=== PATIENT | female | born 1960 | race Caucasian/White ===

== ENCOUNTER 2018-10-21 09:52 | Outpatient (CLI) | payer MEDICARE, MEDICAID, SELFPAY ==
--- NOTE | 2018-10-21 08:47 | DI.RAD_ITS ---
SYMPTOM/DIAGNOSIS: LT THUMB PAIN, M79.645 LEFT WRIST: Three views are provided. The bony structures are normally mineralized. There are mild degenerative changes involving the first metacarpal multangular joint. The study is otherwise unremarkable.
== END 2018-10-21 10:12 ==
PROVIDERS: PCP Nurse Practitioner Family; Visit Provider Nurse Practitioner Family
DX: M79.645 Pain in left finger(s) (principal); M18.12 Unilateral primary osteoarthritis of first carpometacarpal joint, left hand
CPT/HCPCS: 73110

== ENCOUNTER → 2018-11-24 09:09 | Outpatient (BNVA) | payer MEDICARE, MEDICAID, SELFPAY | PROVIDERS: PCP Nurse Practitioner Family; Referring Provider Nurse Practitioner Family; Visit Provider Orthopaedic Surgery | DX: M79.645 Pain in left finger(s) (principal); M18.12 Unilateral primary osteoarthritis of first carpometacarpal joint, left hand; M77.9 Enthesopathy, unspecified | CPT/HCPCS: 20600; 99214; J1030 ==

== ENCOUNTER → 2018-12-22 08:46 | Outpatient (BNVA) | payer MEDICARE, MEDICAID, SELFPAY | PROVIDERS: PCP Nurse Practitioner Family; Referring Provider Nurse Practitioner Family; Visit Provider Orthopaedic Surgery | DX: M79.645 Pain in left finger(s) (principal); M18.12 Unilateral primary osteoarthritis of first carpometacarpal joint, left hand; Z98.890 Other specified postprocedural states | CPT/HCPCS: 99213 ==

== ENCOUNTER 2018-12-23 09:27 | Outpatient (REF) | payer MEDICARE, MEDICAID, SELFPAY ==
[2018-12-23 14:05] LABS: TSH (W/Ref FT4) 4.29 uIU/mL (0.358-3.74)
[2018-12-23 14:22] LABS: FREE T4 1.04 ng/dL (0.76-1.46)
== END 2018-12-23 09:47 ==
LOC: NCHCN 09:27
PROVIDERS: PCP Nurse Practitioner Family; Visit Provider Nurse Practitioner Family
DX: E03.9 Hypothyroidism, unspecified (principal)
CPT/HCPCS: 84439; 84443

== ENCOUNTER → 2019-04-13 10:52 | Outpatient (BNVA) | payer MEDICARE, MEDICAID, SELFPAY | PROVIDERS: PCP Nurse Practitioner Family; Referring Provider Nurse Practitioner Family; Visit Provider Orthopaedic Surgery | DX: M18.12 Unilateral primary osteoarthritis of first carpometacarpal joint, left hand (principal) | CPT/HCPCS: 20600; 99213; J1030 ==

== ENCOUNTER 2019-06-14 12:48 | Outpatient (REF) | payer MEDICARE, MEDICAID, SELFPAY ==
[2019-06-14 13:34] LABS: ALT 32 U/L (14-59); AST 20 U/L (15-37); Albumin 3.8 g/dL (3.4-5.0); Alkaline Phosphatase 85 U/L (46-116); Anion Gap 9.8 mmol/L (3-11); BUN 17 mg/dL (7-18); Bilirubin, Total 0.6 mg/dL (0.2-1.0); CO2 27.2 mmol/L (21.0-32.0); CREATININE 1.02 mg/dL (0.55-1.02); Calculated LDL 110 mg/dL; Chloride 106 mmol/L (98-107); Cholesterol 208 mg/dL (<200); Estimated GFR 55.47 (mL/min/1.73m2); Glucose 119 mg/dL (74-106); HDL Cholesterol 61 mg/dL (40-60); Potassium 4.4 mmol/L (3.5-5.1); Sodium 143 mmol/L (136-145); TSH 3.94 uIU/mL (0.36-3.74); Total Protein 6.7 g/dL (6.4-8.2); Triglyceride 187 mg/dL (<150)
== END 2019-06-14 13:08 ==
LOC: NCHCN 12:48
PROVIDERS: PCP Nurse Practitioner Family; Visit Provider Nurse Practitioner Family
DX: E03.9 Hypothyroidism, unspecified (principal); I10 Essential (primary) hypertension; E78.5 Hyperlipidemia, unspecified
CPT/HCPCS: 80053; 80061; 84443

== ENCOUNTER → 2019-07-05 08:38 | Outpatient (BNVA) | payer MEDICARE, MEDICAID, SELFPAY | PROVIDERS: PCP Nurse Practitioner Family; Referring Provider Nurse Practitioner Family; Visit Provider Orthopaedic Surgery | DX: M18.12 Unilateral primary osteoarthritis of first carpometacarpal joint, left hand (principal); Z98.890 Other specified postprocedural states | CPT/HCPCS: 99213 ==

== ENCOUNTER 2019-07-27 09:35 | Outpatient (CLI) | payer MEDICARE, MEDICAID, SELFPAY ==
--- NOTE | 2019-07-27 11:22 | HPE_ITS ---
Assessment and Plan Assessment and plan (1) Osteoarthritis of carpometacarpal (CMC) joint of left thumb: Status: Chronic Assessment and plan: Plan: Educated patient on surgery covering surgical technique, recovery process, benefits and risks including but not limited to risk of infection, blood clot, damage to soft tissue/blood vessels/nerves in detail. After discussion patient gives verbal understanding of risks and elects to proceed with scheduling surgery. Patient had opportunity to have questions answered to their satisfaction. They will contact office if issues arise. Patient will continue to be scheduled for left trapezial resection arthroplasty with Dr. Calderon. Qualifiers: Osteoarthritis type: primary Qualified Code(s): M18.12 - Unilateral primary osteoarthritis of first carpometacarpal joint, left hand History of Present Illness Narrative: Ms. Scott is right hand dominant 59-year-old female who presents to clinic for pre-operative exam for scheduled left trapezial resection arthroplasty with Dr. Calderon. She has been seen in orthopedic clinic numerous times for left thumb pain due to known CMC OA that has been ongoing for several years. Patient has received CMC joint injection on 11/24/18 and then again on 04/13/19. Reports her first injection helped significantly to reduce her pain, unfortunately she only experienced partial relief for approximately 2 weeks with the second injection. Previously she has tried to treat discomfort by wearing an OTC brace but was unable to tolerate it due to the metal bar putting pressure at the brace of her thumb. Since that time she has continued to have pain along her left thumb. Describes pain with all motions of her thumb. She has tried to treat pain by taking ibuprofen 400 mg QID PRN which dulls the pain. Denies numbness, tingling, injuries or falls. Due to her continued discomfort she was offered and elected to proceed with surgical intervention. Pertinent Surgical Information Denies past medical history of: stroke, cardiac issues, angina, asthma, COPD, sleep apnea, renal issues, liver issues, hepatitis, gastrointestinal issues, ulcers, bleeding disorders, seizures, diabetes, autoimmune disorders Denies prior complications from surgery or anesthesia. Review of Systems Constitutional Constitutional: Denies fever(s), Denies frequent falls and Reports headache(s) (migraines; no change) Eyes Eyes: Denies change in vision ENT Ears, Nose, Mouth, and Throat: Denies dizziness, Denies ear discharge, Reports headache(s) (migraines; no change), Denies epistaxis, Denies nasal discharge and Denies sore throat Cardiovascular Cardiovascular: Denies chest pain, Denies rapid heart rate, Denies irregular heart rhythm, Denies dyspnea, Denies dyspnea on exertion, Denies orthopnea, Denies paroxysmal nocturnal dyspnea and Denies slow heart rate Respiratory Respiratory: Denies cough, Denies dyspnea, Denies dyspnea on exertion and Denies wheezing Gastrointestinal Gastrointestinal: Denies abdominal pain, Denies melena, Denies hematochezia, Denies constipation, Denies diarrhea, Denies nausea and Denies vomiting Genitourinary Genitourinary: Denies hematuria, Denies dysuria and Denies urinary urgency Musculoskeletal Musculoskeletal: Reports as per HPI, Denies numbness and Denies tingling Neurologic Neurologic: Denies dizziness, Denies frequent falls, Reports headache(s) (migraines; no change), Denies numbness and Denies tingling Psychiatric Psychiatric: Reports anxiety (no changes), Reports depression (no changes), Denies homicidal ideation and Denies suicidal ideation Allergic/Immunologic Allergic/Immunologic: Denies wheezing [facility] Medical History (Updated 07/27/19 @ 11:31 by Darling Medina) Depression (Chronic) GERD (gastroesophageal reflux disease) (Chronic) HTN (hypertension) (Chronic) Hyperlipidemia (Acute) Hypothyroidism (Chronic) Surgical History (Updated 07/27/19 @ 09:58 by Quintin Garcia) H/O colonoscopy (Chronic) History of esophagogastroduodenoscopy (EGD) (Chronic) Hx of cholecystectomy (Chronic) Status post excision of lipoma (Acute) Family History (Updated 07/27/19 @ 09:58 by Quintin Garcia) Mother Hx of malignant neoplasm Sister Thyroid cancer Social History Smoking/Tobacco Use Status: Former Tobacco Use Quit Date: 06/29/00 Alcohol Intake: current Alcohol Intake frequency: a few times a week Alcohol type: hard liquor Drug use: Never Substance use type: does not use Current gender identity: female Do you feel safe at home: Yes Do you feel safe in your relationship?: Yes Meds Home Medications and Allergies Home Medications Medication Instructions Recorded Confirmed Type atorvastatin 20 mg tablet 20 mg PO DAILY 04/13/19 07/27/19 History bupropion HCl 150 mg 24 hr tablet, 150 mg PO QAM 04/13/19 07/27/19 History extended release levothyroxine 112 mcg capsule 112 mcg PO DAILY 04/13/19 07/27/19 History pantoprazole 40 mg tablet,delayed 40 mg PO DAILY 04/13/19 07/27/19 History release ibuprofen 400 mg PO PRN PRN 07/27/19 07/27/19 History multivitamin 1 cap PO DAILY 07/27/19 07/27/19 History propranolol 20 mg PO DAILY 07/27/19 07/27/19 History sumatriptan succinate 25 mg PO PRN PRN 07/27/19 07/27/19 History Allergies Allergy/AdvReac Type Severity Reaction Status Date / Time No Known Allergies Allergy Verified 07/27/19 11:37 Exam Const General: cooperative and no acute distress [facility] Head: normal to inspection, normocephalic and atraumatic Ears: external ears normal General nose exam: external nose normal and no nasal discharge Face and sinus: face symmetric Mouth: oral mucosae normal, lip normal, tongue normal and moist mucous membranes Teeth and gingiva: dentition normal Throat: posterior oropharynx normal Eyes General: appearance normal, both eyes and all related structures Pupils: PERRL EOM: EOM intact bilaterally Neck Neck: trachea midline Carotids: normal carotid upstroke Lymphatic: no lymphadenopathy noted Resp Effort & Inspection: normal respiratory effort and able to speak in complete sentences Auscultation: clear to auscultation bilaterally, no rales, no rhonchi and no wheezes Cardio Heart Sounds: S1 normal, S2 normal and no murmurs Pulses: radial pulses present bilaterally Skin General skin exam: no rashes or lesions noted
== END 2019-07-27 09:55 ==
PROVIDERS: PCP Nurse Practitioner Family; Visit Provider Orthopaedic Surgery
DX: M18.12 Unilateral primary osteoarthritis of first carpometacarpal joint, left hand (principal); Z01.818 Encounter for other preprocedural examination
CPT/HCPCS: NC

== ENCOUNTER 2019-08-01 08:51 | Day surgery (SDC) | payer MEDICARE, MEDICAID, SELFPAY ==
[2019-08-01 09:14] VITALS: BP 138/59; PULSE 56; RESP 17; TEMP 36.4; O2SAT 95
[2019-08-01] MEDS: Lactated Ringers 1,000 ML 80 ML IV (09:41)
[2019-08-01] MEDS: ceFAZolin 1 GM/50 ML BAG IVPB (11:07)
[2019-08-01] MEDS: Bupivacaine 0.5% Pres-Free 30 ML VIAL (11:52)
[2019-08-01] MEDS: EPINEPHrine 1 MG/ML AMP pres-free (11:52)
--- NOTE | 2019-08-01 12:31 | W.PM.DSUDISC ---
Discharge Plan Disposition Patient Disposition: HOME Condition: Good Discharge Details Reason For Visit: L Trapezial Resectional Arthroplasty Attending Provider: Jam Calderon Primary Care Provider: Sheila Garibay Home Meds and New Rx's Prescriptions: New hydrocodone-acetaminophen 5-325 mg tablet 1 tab PO Q6H PRN (Reason: pain) Qty: 10 RF: 0 Continued bupropion HCl 150 mg tablet extended release 24 hr 150 mg PO QAM RF: 0 atorvastatin 20 mg tablet 20 mg PO DAILY RF: 0 pantoprazole 40 mg tablet,delayed release (DR/EC) 40 mg PO DAILY RF: 0 levothyroxine 112 mcg capsule 112 mcg PO DAILY RF: 0 sumatriptan succinate 25 mg Tablet 25 mg PO PRN PRNRF: 0 ibuprofen 400 mg Tablet 400 mg PO PRN PRNRF: 0 propranolol 20 mg Tablet 20 mg PO DAILY RF: 0 multivitamin Capsule 1 cap PO DAILY RF: 0 Discharge Instructions Additional Instructions: Try to elevate L hand above heart level as much as possible for next 48 hours. Wiggle fingers L hand 10 times/hour when awake to prevent swelling. Keep dressings and splint dry and in place until return.(Cover with plastic bag sealed with large rubber band below elbow to shower) Return to 's office in 2 weeks. Take ibuprofen for mild pain. Take hydrocodone for breakthru pain, if needed. Referrals: Jam Calderon MD [ [facility] STAFF PHYSICIAN] - (f/u in 2 weeks.) Equipment/Supplies: Splint Activity:: Activity as Tolerated Remove Dressings/Wound Care:: Do Not Remove Shower/Bathe:: Cover Diet:: As Tolerated Discharge Orders Discharge Orders: Discharge Order (Routine); Ordered 08/01/19 Ordered By: Jam Calderon DS: Diagnosis Discharge Diagnosis (1) Osteoarthritis of carpometacarpal (CMC) joint of left thumb: Status: Chronic
[2019-08-01] MEDS: Normal Saline Flush 10 ML SYR IV (13:00)
[2019-08-01] MEDS: Ketorolac 30 MG/ML VIAL IVP (13:01)
[2019-08-01 13:07] VITALS: BP 157/99; PULSE 54; RESP 16; TEMP 36.4; O2SAT 95
--- NOTE | 2019-08-02 16:49 | ROE_ITS ---
DATE OF PROCEDURE: August 01, 2019 PREOPERATIVE DIAGNOSIS: Osteoarthritis CMC joint, left thumb. POSTOPERATIVE DIAGNOSIS: Same. PROCEDURE: 1. Trapezial resectional arthroplasty, left. 2. Application of short-arm thumb spica splint. ANESTHESIA: IV regional. SURGEON: Jam Calderon M.D. INDICATIONS: This is a 59-year-old white female with CMC joint arthritis of her left thumb. The rose n from the arthritis has increased to the point where she could not use her left hand for routine act ivities. She has had only limited benefit from splinting and anti-inflammatory medications. Resecti onal arthroplasty of the trapezium was recommended as optimum treatment to alleviate her pain and res tore good function to her left thumb and hand. The risks and complications of the procedure were exp lained to the patient in detail preoperatively. PROCEDURE: The patient was taken to the operating room on 08/01/2019. She was placed supine on the op erating table and an IV regional anesthesia was administered to the left upper extremity. Once good anesthesia was obtained, the left hand, wrist and forearm were prepped and draped free in the usual s terile fashion. An incision was made on the dorsum of the left thumb, centered over the CMC joint and situated just u lnar to the short extensors of the thumb. The incision was carried down to the joint capsule. The c apsule was incised. A periosteal dissection was then used to expose the trapezium. The trapezium wa s then resected, first with an oscillating saw that was placed parallel to the articulation with the scaphoid, leaving about a 1 mm thick shell of trapezium to articulate with the scaphoid. The distal portion of the trapezium was then sectioned with vertical cuts with the oscillating saw. I then sepa rated the sections with an osteotome and a mallet. The trapezium was then removed in a piecemeal fas hion with rongeurs. The wound was irrigated with saline solution. The wound margins were infiltrate d with 0.5% Marcaine with an epinephrine solution. The CMC joint capsule was then approximated with interrupted #2-0 Vicryl sutures. The short extensor tendons of the thumb were tenodesed to the capsu le with interrupted #2-0 Vicryl sutures. The skin and subcu were then approximated with interrupted #4-0 nylon sutures. Subcutaneous veins were cauterized and a dry wound was obtained at closure. The wound was dressed with Xeroform gauze, sterile gauze 4x4's, ABD pad and wrapped with a Kerlix bandag e. I next applied a radial short-arm thumb spica splint of fiberglass splint material, held on with a 3-inch LYNDON bandage. The IV regional anesthesia was reversed without complications. The patient to lerated the procedure well and she was discharged to the Day Surgery Unit in good condition. The patient was discharged home from the Day Surgery Unit when fully recovered from her IV regional a nesthesia. She was given instructions to try to elevate her left hand above heart level as much as p ossible for the next 48 hours. She is to keep the dressings and splint dry and intact until she foll ows up with me in two weeks. She is to cover the splint and dressings with a plastic bag, sealed wit h a large rubber band in order to shower. She can use her left hand as much as discomfort allows. S he will take Tylenol or ibuprofen for mild pain. She was given a prescription of Hydrocodone with AP AP 5/325, one p.o. q6h prn for breakthrough pain.
== END 2019-08-01 13:40 | disposition home or self-care (01) ==
PROVIDERS: PCP Nurse Practitioner Family; Visit Provider Orthopaedic Surgery
PROC: (CPT 25447; principal; 2019-08-01 10:30)
DX: M18.12 Unilateral primary osteoarthritis of first carpometacarpal joint, left hand (principal); M25.542 Pain in joints of left hand
CPT/HCPCS: 25447; J0171; J0690; J1885; J2704; J3010

== ENCOUNTER → 2019-08-16 10:09 | Outpatient (BNVA) | payer MEDICARE, MEDICAID, SELFPAY | PROVIDERS: PCP Nurse Practitioner Family; Referring Provider Nurse Practitioner Family; Visit Provider Orthopaedic Surgery | DX: Z47.89 Encounter for other orthopedic aftercare (principal); M18.12 Unilateral primary osteoarthritis of first carpometacarpal joint, left hand | CPT/HCPCS: L3809 ==

== ENCOUNTER → 2019-09-14 09:23 | Outpatient (BNVA) | payer MEDICARE, MEDICAID, SELFPAY | PROVIDERS: PCP Nurse Practitioner Family; Referring Provider Nurse Practitioner Family; Visit Provider Orthopaedic Surgery | DX: Z47.89 Encounter for other orthopedic aftercare (principal); M18.12 Unilateral primary osteoarthritis of first carpometacarpal joint, left hand ==

== ENCOUNTER → 2019-10-26 09:31 | Outpatient (BNVA) | payer MEDICARE, MEDICAID, SELFPAY | PROVIDERS: PCP Nurse Practitioner Family; Referring Provider Nurse Practitioner Family; Visit Provider Orthopaedic Surgery | DX: M18.12 Unilateral primary osteoarthritis of first carpometacarpal joint, left hand (principal) ==

== ENCOUNTER 2019-12-07 10:55 | Outpatient (CLI) | payer MEDICARE, MEDICAID, SELFPAY ==
--- NOTE | 2019-12-07 09:15 | DI.RAD_ITS ---
EXAM: XR WRIST LT COMPLETE CLINICAL HISTORY: pain. TECHNIQUE: 2D digital imaging was performed. COMPARISON: CR XR WRIST LT COMPLETE from 10/21/2018 FINDINGS: BONES: No acute fracture is present. No bony destructive lesion is seen. JOINTS: The carpal bones are normally aligned. Postsurgical changes are seen at the 1st carpometacarp al joint. There is a small fragment of the trapezium bone present. SOFT TISSUE: Normal. IMPRESSION: Postsurgical changes at the 1st carpometacarpal joint. DATA REPOSITORY: RADIATION DOSE DELIVERED:
== END 2019-12-07 11:15 ==
PROVIDERS: PCP Nurse Practitioner Family; Referring Provider Nurse Practitioner Family; Visit Provider Orthopaedic Surgery
DX: M25.522 Pain in left elbow (principal); M18.12 Unilateral primary osteoarthritis of first carpometacarpal joint, left hand; Z98.890 Other specified postprocedural states
CPT/HCPCS: 99213; 73110

== ENCOUNTER → 2020-01-18 09:04 | Outpatient (BNVA) | payer MEDICARE, MEDICAID, SELFPAY | PROVIDERS: PCP Nurse Practitioner Family; Referring Provider Nurse Practitioner Family; Visit Provider Orthopaedic Surgery | DX: M18.12 Unilateral primary osteoarthritis of first carpometacarpal joint, left hand (principal); M79.89 Other specified soft tissue disorders; Z47.89 Encounter for other orthopedic aftercare | CPT/HCPCS: 99213 ==

== ENCOUNTER 2020-01-24 00:58 | Outpatient (CLI) | payer MEDICARE, MEDICAID, SELFPAY ==
--- NOTE | 2020-01-24 07:15 | DI.MRI_ITS ---
CLINICAL HISTORY: EXTENSOR POLLICUS LONGUS TENDON STRAIN,RUPTURE LT THUMB,S67.663V. TECHNIQUE: Multiplanar multisequence MRI Examination was performed. CONTRAST MATERIAL: Noncontrast COMPARISON: Wrist films of 07 December 2019 FINDINGS: Bones: There is no fracture or contusion pattern. There has been prior resection of the trapezium. A cyst is seen in the distal pole of the scaphoid. There are degenerative changes at the base of the 1st metacarpal. There is mild edema in the soft tissues the region of the prior surgery. Musculotendinous structures: There is no muscular edema, myositis or focal collection. The extensor p ollicis longus tendon appears intact. There is some thickening of the extensor pollicis brevis and a bductor pollicis longus tendons with minimally increased intrasubstance signal, consistent with tendi nosis. There is no surrounding fluid. The remaining tendons are unremarkable. . IMPRESSION: Mild tendinosis of the extensor pollicis brevis and abductor pollicis longus tendons. Postsurgical a nd degenerative changes the 1st carpal metacarpal joint. DATA REPOSITORY:
== END 2020-01-24 01:18 ==
PROVIDERS: PCP Nurse Practitioner Family; Visit Provider Orthopaedic Surgery
DX: S66.819A Strain of other specified muscles, fascia and tendons at wrist and hand level, unspecified hand, initial encounter (principal); S66.212A Strain of extensor muscle, fascia and tendon of left thumb at wrist and hand level, initial encounter
CPT/HCPCS: 73218

== ENCOUNTER → 2020-02-07 11:14 | Outpatient (BNVA) | payer MEDICARE, MEDICAID, SELFPAY | PROVIDERS: PCP Nurse Practitioner Family; Referring Provider Nurse Practitioner Family; Visit Provider Orthopaedic Surgery | DX: M24.542 Contracture, left hand (principal); Z71.2 Person consulting for explanation of examination or test findings; I10 Essential (primary) hypertension; Z11.59 Encounter for screening for other viral diseases | CPT/HCPCS: 99213 ==

== ENCOUNTER 2020-02-24 03:14 | Outpatient (CLI) | payer MEDICARE, MEDICAID, SELFPAY ==
[2020-02-26 02:45] LABS: COVID-19 RT-PCR Result NEGATIVE (Negative)
== END 2020-02-24 03:34 ==
PROVIDERS: PCP Nurse Practitioner Family; Visit Provider Orthopaedic Surgery
DX: Z11.59 Encounter for screening for other viral diseases (principal); Z01.818 Encounter for other preprocedural examination
CPT/HCPCS: U0003

== ENCOUNTER 2020-02-27 06:12 | Day surgery (SDC) | payer MEDICARE, MEDICAID, SELFPAY ==
[2020-02-27 06:20] VITALS: BP 144/86; PULSE 54; RESP 17; TEMP 36; O2SAT 96
[2020-02-27] MEDS: Lactated Ringers 1,000 ML 80 ML IV (06:56)
[2020-02-27] MEDS: ceFAZolin 1 GM/50 ML BAG IVPB (07:35)
--- NOTE | 2020-02-27 08:31 | PDOC.DSDIS_ITS ---
Discharge Plan Disposition Patient Disposition: HOME Condition: Good Discharge Details Reason For Visit: EXTENSOR TENOLYSIS L THUMB Attending Provider: Jam Calderon Primary Care Provider: Sheila Garibay Home Meds and New Rx's Prescriptions: New hydrocodone-acetaminophen 5-325 mg tablet 1 tab PO Q6H PRN (Reason: pain) Qty: 10 RF: 0 No Action pantoprazole 40 mg tablet,delayed release (DR/EC) 40 mg PO DAILY RF: 0 levothyroxine 112 mcg capsule 112 mcg PO DAILY RF: 0 atorvastatin 20 mg tablet 40 mg PO DAILY RF: 0 bupropion HCl 150 mg tablet extended release 24 hr 300 mg PO QAM RF: 0 sumatriptan succinate 25 mg Tablet 25 mg PO PRN PRNRF: 0 ibuprofen 400 mg Tablet 400 mg PO PRN PRNRF: 0 propranolol 20 mg Tablet 20 mg PO DAILY RF: 0 multivitamin Capsule 1 cap PO DAILY RF: 0 Discharge Instructions Additional Instructions: Keep dressings clean and dry for 72 hours. Move L thumb as much as your discomfort allows. May remove dressings, shower, and get incision wet after 72 hours. May leave incision uncovered when it is dry and sealed. After you remove dressings in 72 hours, start to do thumb stretching exercises(touching fingertips with thumb) as much as your discomfort allows. Follow up in 2 weeks. Take ibuprofen 400 mg three times/day for next 2 weeks. Take hydrocodone for breakthru pain, if needed. Referrals: Jam Calderon MD [ [facility] STAFF PHYSICIAN] - (f/u in 2 weeks.) Activity:: Activity as Tolerated Remove Dressings/Wound Care:: 72 hours Shower/Bathe:: 72 hours Diet:: As Tolerated Discharge Orders Discharge Orders: Discharge Order (Routine); Ordered 02/27/20 Ordered By: Jam Calderon
[2020-02-27 08:53] VITALS: BP 143/81; PULSE 51; RESP 18; TEMP 36.3; O2SAT 96
--- NOTE | 2020-02-28 12:43 | ROE_ITS ---
Date of service: 02/27/20 Time of Service: 08:00 Operative Note Operative Note DATE OF PROCEDURE: 02/27/20 PRE-OP DIAGNOSIS: Extensor contracture left thumb. POST-OP DIAGNOSIS: same PROCEDURE: Extensor tenolysis left thumb SURGEON: Jam Calderon COPY MACHINE OPERATOR: Ana Bautista ANESTHESIA: GETA PATHOLOGY: none sent COMPLICATIONS: None Patient was transported to: PACU Patient's condition: stable Indications: This is a 60-year-old white female who had a trapezial resection arthroplasty in July 2019. She has had good pain relief from the procedure. However, she has continued to experience decreased flexion of her thumb. It was presumed that the tenodesis of her extensor pollicis brevis and abductor pollicis longus to the joint capsule was too tight, causing the contracture. She is able to touch the tip of the ring finger only after 6 months postop. I recommended extensor tenolysis of her left thumb to get better flexion and function of her thumb. Risk and complications of the procedure were explained to the patient in detail preop. Procedure Description: Patient was taken the operating room on 02/27/2020 space upon the table and a general anesthetic was administered. The left hand was then prepped and draped free in usual sterile fashion. Incision was made in line with her old surgical scar skin flaps were mobilized. Sharp dissection was used until I identified the extensor pollicis brevis and abductor pollicis longus tendons. They were encapsulated in scar and adherent to the capsule. T he tendons were freed up and mobilized from the scar which sharp dissection. I also performed a tenolysis of the extensor pollicis longus tendon. At this point I was able to passively bring her thumb tip to the proximal flexion crease of the little finger. I felt this was acceptable mobilization of her thumb. All bleeders were cauterized. Wound margins were infiltrated 0.5% Marcaine with epinephrine solution. The CMC joint capsule was also infiltrated 0.5% Marcaine with epinephrine solution for postoperative analgesia. The skin edges were approximated with horizontal mattress sutures of 4-0 nylon suture material. Wound was dressed with Xeroform gauze, sterile gauze 4 x 4's, and ABD pad and wrapped with a 4 inch Kerlix bandage and overwrapped with a 3 inch Abdirashid bandage. Tourniquet was used for the procedure was released. There is no breakthrough bleeding to the dressing. Patient's anesthesia was reversed all complications and she was discharged to recovery room good condition. Patient was discharged home from day surgery unit and fully recovered from her anesthesia. She is given instructions try to elevate her left hand above heart levels once possible overnight tonight. She is encouraged to move her thumb as much as her dressings allow. She may remove her dressings shower and get incision wet after 72 hours. She may leave the incision uncovered when is dry and sealed. She is encouraged to use her left thumb as much as discomfort allows. She will perform range of motion exercises as instructed. She is given a prescription for breakthrough pain of hydrocodone with acetaminophen 5/325 1 p.o. every 6 hours as needed. She will take ibuprofen 400 mg p.o. every 6 hours as needed for mild pain. Should follow-up with Dr. Calderon in 2 weeks.
== END 2020-02-27 09:55 | disposition home or self-care (01) ==
PROVIDERS: PCP Nurse Practitioner Family; Visit Provider Orthopaedic Surgery
PROC: (CPT 26045; principal; 2020-02-27 07:30)
DX: M24.542 Contracture, left hand (principal); M65.842 Other synovitis and tenosynovitis, left hand; E03.9 Hypothyroidism, unspecified; I10 Essential (primary) hypertension
CPT/HCPCS: 26445 ×3; J0690; J2001; J2704

== ENCOUNTER → 2020-03-13 09:04 | Outpatient (BNVA) | payer MEDICARE, MEDICAID, SELFPAY | PROVIDERS: PCP Nurse Practitioner Family; Referring Provider Nurse Practitioner Family; Visit Provider Orthopaedic Surgery | DX: Z47.89 Encounter for other orthopedic aftercare (principal); M18.12 Unilateral primary osteoarthritis of first carpometacarpal joint, left hand; I10 Essential (primary) hypertension ==

== ENCOUNTER → 2020-04-10 09:16 | Outpatient (BNVA) | payer MEDICARE, MEDICAID, SELFPAY | PROVIDERS: PCP Nurse Practitioner Family; Referring Provider Nurse Practitioner Family; Visit Provider Orthopaedic Surgery | DX: Z47.89 Encounter for other orthopedic aftercare (principal); M24.542 Contracture, left hand; I10 Essential (primary) hypertension ==

== ENCOUNTER 2020-10-26 09:28 | Outpatient (REF) | payer MEDICARE, MEDICAID, SELFPAY ==
[2020-10-26 15:53] LABS: Anion Gap 8.2 mmol/L (3-11); BUN 22 mg/dL (7-18); CO2 28.8 mmol/L (21.0-32.0); CREATININE 1.2 mg/dL (0.55-1.02); Calcium 9.7 mg/dL (8.5-10.1); Calculated LDL 108 mg/dL (<100); Chloride 107 mmol/L (98-107); Cholesterol 220 mg/dL (<200); Estimated GFR 45.83 (mL/min/1.73m2); Glucose 119 mg/dL (74-106); HDL Cholesterol 71 mg/dL (40-60); Potassium 4.7 mmol/L (3.5-5.1); Sodium 144 mmol/L (136-145); TSH (W/Ref FT4) 2.64 uIU/mL (0.36-3.74); Triglyceride 207 mg/dL (<150)
== END 2020-10-26 09:29 | disposition home or self-care (01) ==
LOC: NCHCN 09:28
PROVIDERS: PCP Nurse Practitioner Family; Visit Provider Nurse Practitioner Family
DX: E03.9 Hypothyroidism, unspecified (principal); I10 Essential (primary) hypertension; E78.5 Hyperlipidemia, unspecified
CPT/HCPCS: 80048; 80061; 84443

== ENCOUNTER 2020-11-21 13:56 | Outpatient (CLI) | payer MEDICARE, MEDICAID, SELFPAY ==
--- NOTE | 2020-11-21 13:30 | DI.RAD_ITS ---
Exam(s) XR SHOULDER RT COMPLETE 2+V EXAM: XR SHOULDER RT COMPLETE 2+V CLINICAL HISTORY: right shoulder pain. TECHNIQUE: 2D digital imaging was performed. COMPARISON: No exams were available for comparison FINDINGS: No evidence of fracture or dislocation. Mild degenerative changes. No osteophytes. Mild degenerati ve changes in the AC joint. No loose intra-articular bodies. IMPRESSION: DATA REPOSITORY: RADIATION DOSE DELIVERED:
== END 2020-11-21 13:57 | disposition home or self-care (01) ==
LOC: DIORS 13:56
PROVIDERS: PCP Nurse Practitioner Family; Referring Provider Nurse Practitioner Family; Visit Provider Student in an Organized Health Care Education/Training Program
DX: M75.101 Unspecified rotator cuff tear or rupture of right shoulder, not specified as traumatic (principal); M75.21 Bicipital tendinitis, right shoulder; M19.011 Primary osteoarthritis, right shoulder; M25.511 Pain in right shoulder
CPT/HCPCS: 99204; 99213; 73030

== ENCOUNTER 2021-01-04 03:33 | Outpatient (CLI) | payer MEDICARE, MEDICAID, SELFPAY ==
--- NOTE | 2021-01-04 | DI.MAMMO_ITS ---
Exam(s) MAMMO SCREENING EXAM: MAMMO SCREENING CLINICAL HISTORY: SCREENING, Z12.39 TECHNIQUE: Mammograms were interpreted according to the usual protocol including computer analysis w [employer] CAD system, tomosynthesis and C-view imaging. COMPARISON: 2012 through 2018 FINDINGS: The breasts are composed of scattered fibroglandular densities, Breast Density category B. No suspicious masses or suspicious microcalcifications are seen. No skin thickening or abnormal axillary lymph nodes are seen. There has been no significant change from prior exams. IMPRESSION: BI-RADS Category 1, Negative mammogram Yearly screening mammography is recommended. Breast Density - Category B, scattered fibroglandular densities. A negative radiographic report should not delay biopsy if a dominant or clinically suspicious mass is present. Up to ten percent of cancers are not identified on mammography. A negative report may reinforce clinical impression. Adenosis and dense breasts may obscure an underlying neoplasm. False positive reports average 6 to 10%. Patient will receive a letter notifying them of these results.
== END 2021-01-04 03:53 ==
PROVIDERS: PCP Nurse Practitioner Family; Visit Provider Nurse Practitioner Family
DX: Z12.31 Encounter for screening mammogram for malignant neoplasm of breast (principal); R92.8 Other abnormal and inconclusive findings on diagnostic imaging of breast
CPT/HCPCS: 77063; 77067

== ENCOUNTER → 2021-01-30 09:21 | Outpatient (BNVA) | payer MEDICARE, MEDICAID, SELFPAY | PROVIDERS: PCP Nurse Practitioner Family; Referring Provider Nurse Practitioner Family; Visit Provider Student in an Organized Health Care Education/Training Program | DX: M25.511 Pain in right shoulder (principal); M75.101 Unspecified rotator cuff tear or rupture of right shoulder, not specified as traumatic; M75.21 Bicipital tendinitis, right shoulder; M19.011 Primary osteoarthritis, right shoulder | CPT/HCPCS: 99213 ==

== ENCOUNTER 2021-04-18 02:00 | Outpatient (CLI) | payer MEDICARE, MEDICAID, SELFPAY ==
--- NOTE | 2021-04-18 | DI.US_ITS ---
Exam(s) US PAIN CLINIC NEEDLE GUIDANCE EXAM: CHRONIC NECK PAIN, M54.2,MYOFASCIAL PAIN,M79.1, ULTRASOUND GUIDED INJECTION COMPARISON: No exams were available for comparison TECHNIQUE: Ultrasound performed using standard protocol. FINDINGS: Ultrasound guidance was provided for therapeutic injection. Radiologist was not present. IMPRESSION: DATA REPOSITORY:
[2021-04-18 12:36] VITALS: BP 148/86; PULSE 58; RESP 22; TEMP 36.3; O2SAT 96
[2021-04-18 13:17] VITALS: PULSE 57; O2SAT 97
--- NOTE | 2021-04-18 13:17 | PDOC.PAIN_ITS ---
Pain Clinic Procedure Note Procedure Note Procedure Note: ULTRASOUND GUIDED BILATERAL CERVICAL PARASPINOUS AND TRAPEZIOUS TRIGGER INJECTIONS Pre-Procedural Evaluation: Nel Scott has been referred to the Pain Management Center for an Ultrasound Guided bilateral trigger point injections for a chief complaint of upper mid-back and neck pain. Pre-procedure Pain Score: 7/10 Patient was interviewed and the medical record reviewed. There were no medical, pharmacologic, radiographic, or other structural contraindications to preforming an ultrasound guided injection. Risks and expected side effects as well as potential benefits of the procedure were reviewed. The patient consent form was signed and witnessed. Standard time-out procedure was performed. The use of direct ultrasound visualization of the needle (rather than a non- guided injection) was required to increase patient safety by excluding inadvertent intramuscular, intratendinous, or intraneural needle placement and minimizing bleeding by avoiding osteochondral or vascular injury from the needle. Additionally, the increased accuracy of placement may increase clinical effectiveness and will allow higher diagnostic specificity when evaluating effectiveness of this injection. Procedure Description: The patient was placed in the prone position and automated blood pressure cuff and pulse oximeter applied for monitoring during the procedure and recorded in the medical record. Pre-injection ultrasound scanning of the area of interest was performed using a linear transducer, identifying relevant anatomy, landmarks, and neurovascular structures allowing for optimal needle path. The site was then prepared in the usual sterile fashion, using thorough Chlorhexadine preparation of the skin and sterile draping. The same ultrasound transducer was then passed into the sterile field using sterile probe cover and sterile ultrasound gel. The injection target was again visualized. Skin and subcutaneous tissues were anesthetized with 5 mL of 1% Lidocaine. A 2 1guage Pajunk Ultrasound needle was placed under live ultrasound guidance, using an in-plane approach, to the target area. After visualization of the needle tip at the target area, a mixture of 5 mL 2% Lidocaine and 1 mL Dexamethasone (10 mg/cc), totaling 6 mL of injectate was delivered after negative aspiration for blood. Ultrasound images were captured and stored for documentation purposes. Post-procedure Pain Score: 5/10 Vital signs were stable throughout the procedure and were as recorded in the docflowsheet by the nursing staff. Follow up plans and appointments were discussed with the patient.Post procedure instruction was given as documented in nursing documentation and having met discharge criteria, they were discharged from the Pain Management Center. COMMENTS: She tolerated the procedure well. Rashi Hester DO, MPH ABPM&R, Subspecialty board certified in Pain Management
[2021-04-18] MEDS: Dexamethasone Sod. Phos./Pres-Free 10 MG/ML VIAL IJ (13:24)
[2021-04-18] MEDS: Lidocaine 2% Pres-Free 5 ML VIAL IJ (13:24)
== END 2021-04-18 02:20 ==
PROVIDERS: PCP Nurse Practitioner Family; Visit Provider Preventive Medicine Occupational Medicine
DX: M79.18 Myalgia, other site (principal)
CPT/HCPCS: 20553; 76942

== ENCOUNTER → 2021-05-15 08:54 | Outpatient (BNVA) | payer MEDICARE, MEDICAID, SELFPAY | PROVIDERS: PCP Nurse Practitioner Family; Visit Provider Student in an Organized Health Care Education/Training Program | DX: M75.101 Unspecified rotator cuff tear or rupture of right shoulder, not specified as traumatic (principal); M75.21 Bicipital tendinitis, right shoulder; M19.011 Primary osteoarthritis, right shoulder | CPT/HCPCS: 99213 ==

== ENCOUNTER 2021-05-27 01:04 | Outpatient (CLI) | payer MEDICARE, MEDICAID, SELFPAY ==
--- NOTE | 2021-05-27 06:30 | DI.MRI_ITS ---
Exam(s) MR UPPER JOINT RT WO EXAM: MR UPPER JOINT RT WO CLINICAL HISTORY: R SHOULDER PAIN,rt rotator cuff ear,tendonitis biceps brachi,arthritis rt TECHNIQUE: Multiplanar multisequence MRI of the shoulder was performed. COMPARISON: CR XR SHOULDER RT COMPLETE 2+V from 11/21/2020 CR XR SHOULDER RT COMPLETE 2+V from 11/21/2020 FINDINGS: MARROW:There is no evidence of fracture, Hill-Sachs deformity, nor ominous osseous lesions. ROTATOR CUFF MECHANISM: AC JOINT/ACROMIUM: There are moderate degenerative changes in the AC joint. Downgoing osteophytes at this level causing some impingement on the supraspinatus. There is no evidence of os acromiale. Supraspinatus: There is an area of partial and full-thickness tearing in the anterior aspect of the s upraspinatus. There is no retraction of the musculotendinous junction. There is fluid in the subacr omial-subdeltoid bursa. No atrophy. Infraspinatus: Some tendinitis signal at insertional aspect. No full-thickness tear. No atrophy. Teres Minor: Intact. No evidence of tear nor muscle atrophy. Subscapularis/anterior cuff: Intact. No abnormal signal at the level of the multipennate insertional fibers. No significant tear nor atrophy. BICEPS TENDON: Normally position in the intertubercular groove. No evidence of tear. No tenosynovitis. LABRUM: There is fluid signal interposed between superior labrum and osseous glenoid posterior to the biceps attachment, consistent with small area of SLAP tear. This does not appear to extend into the posterior labrum. Anterior labrum is intact. Inferior labrum intact. GLENOHUMERAL JOINT: No joint effusion nor obvious loose intra-articular bodies. No chondral defects. No osteophytes. There are degenerative subarticular cysts in the posterior lateral humeral head sub jacent to the infraspinatus insertion. No evidence of capsular tear. The inferior glenohumeral liga ment is intact. QUADRILATERAL SPACE: No evidence of mass in the region of the axillary nerve and dorsal circumflex hu meral vessels. Visualized triceps muscle at this level appears unremarkable. IMPRESSION: 1. There is full-thickness tearing of the supraspinatus tendon anterior aspect with fluid in the over lying subacromial-subdeltoid bursa. There is no retraction musculotendinous junction. Some abnormal signal is also seen in the infraspinatus but there does not appear to be a full-thickness tear of th e infraspinatus tendon. No tear of the anterior cuff-subscapularis. Significant degenerative change s in the AC joint downgoing osteophytes causing impingement at this level. 2. Small area of SLAP superior labral tear. No other labral tears. No evidence of paralabral cyst. No evidence of biceps tendon tear. DATA REPOSITORY:
== END 2021-05-27 01:24 ==
PROVIDERS: PCP Nurse Practitioner Family; Visit Provider Student in an Organized Health Care Education/Training Program
DX: M19.011 Primary osteoarthritis, right shoulder (principal); M75.101 Unspecified rotator cuff tear or rupture of right shoulder, not specified as traumatic; M75.21 Bicipital tendinitis, right shoulder; S43.431A Superior glenoid labrum lesion of right shoulder, initial encounter
CPT/HCPCS: 73221

== ENCOUNTER → 2021-06-04 09:12 | Outpatient (BNVA) | payer MEDICARE, MEDICAID, SELFPAY | PROVIDERS: PCP Nurse Practitioner Family; Visit Provider Student in an Organized Health Care Education/Training Program | DX: M75.101 Unspecified rotator cuff tear or rupture of right shoulder, not specified as traumatic (principal); M75.21 Bicipital tendinitis, right shoulder; M19.011 Primary osteoarthritis, right shoulder; M75.51 Bursitis of right shoulder; M75.41 Impingement syndrome of right shoulder | CPT/HCPCS: 99214 ==

== ENCOUNTER → 2021-09-10 08:24 | Outpatient (BNVA) | payer MEDICARE, MEDICAID, SELFPAY | PROVIDERS: PCP Nurse Practitioner Family; Referring Provider Nurse Practitioner Family; Visit Provider Student in an Organized Health Care Education/Training Program | DX: M75.51 Bursitis of right shoulder (principal); M75.41 Impingement syndrome of right shoulder; M75.101 Unspecified rotator cuff tear or rupture of right shoulder, not specified as traumatic; M75.21 Bicipital tendinitis, right shoulder; M19.011 Primary osteoarthritis, right shoulder | CPT/HCPCS: 99214 ==

== ENCOUNTER 2021-11-12 01:57 | Outpatient (CLI) | payer MEDICARE, MEDICAID, SELFPAY ==
[2021-11-12 11:39] LABS: Source Nasal/Nares
[2021-11-13 00:48] LABS: COVID-19 PCR Negative (Negative)
== END 2021-11-12 01:58 | disposition home or self-care (01) ==
LOC: LBO 01:57
PROVIDERS: PCP Nurse Practitioner Family; Visit Provider Student in an Organized Health Care Education/Training Program
DX: Z20.822 Contact with and (suspected) exposure to COVID-19 (principal); Z01.818 Encounter for other preprocedural examination
CPT/HCPCS: 87635; U0005

== ENCOUNTER 2021-11-14 06:00 | Day surgery (SDC) | payer MEDICARE, MEDICAID, SELFPAY ==
[2021-11-14] VITALS (10 sets, daily range): BP systolic 144–187; BP diastolic 77–105; PULSE 52–65; RESP 11–20; TEMP 36.2–36.5; O2SAT 93–98; BMI 38.5
--- NOTE | 2021-11-14 06:44 | W.ANESPRE ---
General Info Date of Service Date Performed: 11/14/21 Height: 5 ft 4 in Weight: 101.7 kg Body Mass Index (BMI): 38.5 Surgical Procedure: Operation Date: 11/14/21 07:40 Proposed Procedure Side Surgeon p Shoulder Rotator Cuff Arthroscopic w/Extensive Debridement, Biceps Tenodesis,Distal Clavicle Excision Right Uriel Powers MD Meds Allergies and Home Medications Allergies Allergy/AdvReac Type Severity Reaction Status Date / Time pollen extracts Allergy Unknown Runny Nose Unverified 11/14/21 06:19 Home Medication Medication Instructions Recorded levothyroxine 112 mcg capsule 112 mcg PO DAILY 04/13/19 pantoprazole 40 mg tablet,delayed 40 mg PO DAILY 04/13/19 release multivitamin 1 cap PO DAILY 07/27/19 propranolol 20 mg tablet 20 mg PO DAILY 07/27/19 sumatriptan succinate 25 mg tablet 25 mg PO PRN PRN 07/27/19 atorvastatin 20 mg tablet 40 mg PO DAILY 02/23/20 bupropion HCl 150 mg 24 hr tablet, 300 mg PO QAM 02/23/20 extended release meloxicam 15 mg tablet 15 mg PO DAILY 01/22/21 acetaminophen 500 mg tablet 1,000 mg PO Q6H PRN PRN 11/14/21 Current Visit Medications: Current Medications Generic Name Dose Route Start Last Admin Trade Name Gustaboq PRN Reason Stop Dose Admin Ringer's Solution 1,000 mls @ 100 mls/hr 11/14/21 06:00 IV 12/13/21 23:59 INFUSION LOIDA Cefazolin Sodium/Dextrose 2 gm in 50 mls @ 100 mls/hr 11/14/21 06:00 Ancef Duplex IVPB 12/13/21 23:59 PREOP LOIDA IV Miscellaneous Supplies 1 each 11/14/21 06:00 Iv Access IV 12/13/21 23:59 DIRECTED LOIDA Sodium Chloride 0 ml 11/14/21 06:00 Normal Saline Flush 10 Ml Syr IV 12/13/21 23:59 PRN PRN Sodium Chloride 0 ml 11/14/21 06:00 Normal Saline 10 Ml Vial IJ 12/13/21 23:59 DIRECTED PRN Sterile Water 0 ml 11/14/21 06:00 Water,Injection,Sterile 10 Ml Vial IJ 12/13/21 23:59 DIRECTED PRN PFSH Active Problems Active Problems: Problem Status Onset Code Osteoarthritis of carpometacarpal (CMC) joint of left thumb M18.12 Contracture of left thumb joint M24.542 Tendonitis of long head of biceps brachii of right shoulder M75.21 Arthritis of right acromioclavicular joint M19.011 Rotator cuff tear, right M75.101 Neck pain, chronic M54.2, G89.29 Myofascial pain M79.18 Bursitis of right shoulder M75.51 Impingement syndrome of right shoulder M75.41 Medical History Medical History (Updated 11/12/21 @ 12:49 by Quintin Garcia) Balance problem Per pt. states she used to, but no longer does. BMI 40.0-44.9, adult Borderline personality disorder Conversion disorder with abnormal movement Depression Family history of breast cancer Fatty infiltration of liver GERD (gastroesophageal reflux disease) HTN (hypertension) Hyperlipidemia Hypothyroidism Migraine Neck pain Numbness Prediabetes PTSD (post-traumatic stress disorder) Shoulder pain, right Surgical History Surgical History (Updated 11/14/21 @ 06:19 by Eli Galan RN) H/O colonoscopy History of esophagogastroduodenoscopy (EGD) Hx of cholecystectomy Hx of hand surgery x2 thumb area Status post excision of lipoma Tobacco Smoking/Tobacco Use Status: Former Tobacco Use Alcohol Alcohol Intake: current Alcohol intake frequency: a few times a week Alcohol type: hard liquor Substance Use Substance use: Occasionally Substance use type: marijuana Vital Signs and Lab Results Vital Signs Most Recent Vital Signs in EMR: Most Recent Vital Signs Temp Pulse Resp BP Pulse Ox 36.2 C L 52 L 17 144/80 H 97 11/14/21 06:02 11/14/21 06:02 11/14/21 06:02 11/14/21 06:02 11/14/21 06:02 Lab Results Blood Type / Crossmatch: No Data to Display Complete Blood Count: No Data to Display Complete Metabolic Panel: No Data to Display Liver Function Panel: No Data to Display Coagulation Panel: No Data to Display Cardiac Panel: No Data to Display Arterial Blood Gas: No Data to Display Venous Blood Gas: No Data to Display Pancreas Panel: No Data to Display Thyroid Panel: No Data to Display Infectious Disease: Coronavirus (COVID-19)(PCR) Negative (Negative) 11/12/21 11:37 Coronavirus 2019 Source Nasal/Nares 11/12/21 11:37 Blood Cultures: No Data to Display Toxicology Panel: No Data to Display Anesthesia Assessment and Plan Anesthesia History Personal History: No History of Anesthesia Complications Family History: No Family History of Anesthesia Complications Exercise Tolerance Exercise Tolerance: Metabolic Equivalents>4 Pertinent Negatives Pertinent Negatives: No Symptoms of GERD, No Major Cardiovascular Symptoms or Complaints, No Major Pulmonary Symptoms or Complaints and No History of CVA/TIA Cardiac & Pulmonary Exam Cardiac Exam: Normal S1/S2 Heart Sounds Pulmonary Exam: Clear Bilateral Breath Sounds Implantable Cardiac Device Does patient have a Pacemaker or an ICD?: No Airway Exam Known Difficult Airway: No Mallampati Class: 2 Mouth Opening: Normal (> 3cm) Thyromental Distance: Greater than 3 cm Neck Range of Motion: Full ROM Neck Circumference: Normal Teeth Condition: Normal Dentition ASA Classification ASA Score: ASA 2 Emergency Case?: No NPO Status NPO Status: NPO Clears >2 hours, Solids >8 hours Anesthesia Plan Resuscitation Status: Full Code Anesthesia Technique: General Anesthesia Airway Planned: Endotracheal Tube Monitors Used: Standard Monitors
--- NOTE | 2021-11-14 06:45 | W.ANESNERVE ---
Nerve Block Single Injection Procedure Date and Time Date Performed: 11/14/21 Procedure Start: 07:20 Location Where Procedure Performed Procedure Location: Day Surgery Unit Reason Performed: Postoperative Analgesia Requesting Provider: Uriel Powers Timeout Performed Timeout Performed: Yes Monitoring Used ECG, Blood Pressure and SpO2 Sterility Sterility: Hand Hygiene, Surgical Cap, Surgical Mask, Sterile Gloves, Eye Protection and Chlorhexidine Sedation Given During Procedure Sedation Given (Indicate Dose Given): Versed IV Dose:: 2 mg Patient Mental Status Patient Mental Status: Awake Nerve Block 1st Nerve Block: Laterality: Right Block Type: Interscalene Needle / Catheter Used: 100mm SonoPlex II Local Anesthetic Bolus (Indicate Dose Given): Lidocaine used for local infiltration of skin, Injected in 3-5ml increments after negative blood aspiration and Bupivacaine 0.5% Dose:: 15 ml Additives (Indicate Dose Given): None Ultrasound: Sterile probe cover and gel used Ultrasound Image Saved?: Yes Nerve Stimulator: Not Used Paresthesia: None Procedure Tolerated: No Complications and Patient tolerated well Procedure Outcome: Successful Performed By: Christina Ortega Supervised By: Vi Laazro
[2021-11-14] MEDS: Lactated Ringers 1,000 ML 100 ML IV (06:51)
[2021-11-14] MEDS: ceFAZolin 2 GM/50 ML BAG IVPB (07:32)
[2021-11-14] MEDS: EPINEPHrine 30 MG/30 ML VIAL (09:21)
--- NOTE | 2021-11-14 09:28 | W.PM.DSUDISC ---
Discharge Plan Disposition Patient Disposition: HOME Condition: Stable Discharge Details Reason For Visit: Right shoulder surgery Attending Provider: Uriel Powers Primary Care Provider: Sheila Garibay Home Meds and New Rx's Prescriptions: New aspirin 81 mg tablet,delayed release (DR/EC) 81 mg PO DAILY 14 Days Qty: 14 0RF naproxen 250 mg tablet 250 - 500 mg PO BID PRNQty: 40 0RF Rx Instructions: take with a meal oxycodone 5 mg tablet 5 - 10 mg PO Q4H MDD 30 mg PRN (Reason: moderate to severe pain) Qty: 18 0RF Continued pantoprazole 40 mg tablet,delayed release (DR/EC) 40 mg PO DAILY levothyroxine 112 mcg capsule 112 mcg PO DAILY atorvastatin 20 mg tablet 40 mg PO DAILY bupropion HCl 150 mg tablet extended release 24 hr 300 mg PO QAM acetaminophen 500 mg Tablet 1,000 mg PO Q6H PRN PRN sumatriptan succinate 25 mg Tablet 25 mg PO PRN PRN propranolol 20 mg Tablet 20 mg PO DAILY multivitamin Capsule 1 cap PO DAILY Discontinued meloxicam 15 mg Tablet 15 mg PO DAILY Discharge Instructions Additional Instructions: Surgery: Right shoulder arthroscopy with rotator cuff repair, biceps tenodesis, extensive debridement, distal clavicle excision, and subacromial decompression. Activity: For 6 weeks, you should keep your arm at your side in a neutral position at all times except for physical therapy. Do not try to lift or raise your arm using your own muscles. You should use the sling whenever you are out of the house. You may have to adjust the abduction pillow or remove it for comfort. At home it is best to remove the sling and rest the arm on a pillow at your side or support the operative side with your other hand. You may allow the arm to dangle at your side. A physical therapy prescription will be sent electronically to begin in about 3 weeks. Prescriptions: Aspirin 81 mg take 1 daily to prevent a blood clot for 2 weeks Naproxen 250 mg take 1-2 every 12 hours with a meal as needed for moderate pain Oxycodone 5 mg take 1-2 every 4-6 hours as needed for severe pain You may use hymd-naj-olxbtor Tylenol (acetaminophen) as needed for mild pain. These pain medications may be taken all at once or in different combinations as needed. Also, recommend Colace (docusate) as a stool softener as surgery and pain medicine cause constipation. You may try jmsj-hhe-nchbgjc diphenhydramine (Benadryl) 25-50 mg nightly as a sleep aid Dressings: Remove shoulder bandage after 3 days. Leave the sticky Steri-Strips in place until they fall off or remove them after you shower. Cover the incisions with Band-Aids or leave them open to air. You may shower after 5 days. Follow-up: 10-[address] Powers You may take off the leg compression stockings this evening at home. You may also leave them on a few days longer if you have a history of leg swelling or edema. Let us know right away if you develop any redness, drainage, fevers, chest pain, or trouble breathing. Do not drink alcohol or drive for at least 24 hours after anesthesia. Please call the office during business hours with any questions or concerns. Referrals: Uriel Powers MD [ [facility] STAFF PHYSICIAN] - Discharge Orders Discharge Orders: Discharge Order (Routine); Ordered 11/14/21 Ordered By: Uriel Powers DS: Diagnosis Discharge Diagnosis (1) Rotator cuff tear, right: Status: Acute
--- NOTE | 2021-11-14 09:33 | ROE_ITS ---
Date of service: 11/14/21 Time of Service: 07:30 Operative Note Operative Note DATE OF PROCEDURE: 11/14/21 PRE-OP DIAGNOSIS: Right: 1. Rotator cuff tear 2. LHB tendinopathy 3. Bursitis 4. Impingement 5. AC joint arthritis POST-OP DIAGNOSIS: same PROCEDURE: Right: 1. Rotator cuff repair, CPT# 12161. This involved repair of the supraspinatus using anchor and sutures to reattach the rotator cuff back to the footprint of the greater tuberosity. 2. Arthroscopic biceps tenodesis, CPT# 66436. This involved arthroscopically suturing and reattaching the long head of the biceps tendon to the proximal humerus at the superior margin of the bicipital groove with a screw at the correct tension. 3. Extensive debridement, CPT# 10244. This involved using arthroscopic hand instruments, power instruments, and radiofrequency instruments to release the long head of the biceps tendon and debride areas of labral tearing, synovitis, and chondromalacia about the superior glenoid and greater tuberosity working the glenohumeral joint anteriorly, superiorly and posteriorly. 4. Subacromial decompression with partial acromioplasty, CPT# 70068. This involved using arthroscopic power instruments and a radiofrequency wand to complete a bursectomy and remove bone spurs on the undersurface of the acromion. 5. Arthroscopic distal clavicle excision, CPT# 90398. This involved arthroscopically exposing the underside of the acromioclavicular joint, smoothing out bone spurs, and removing approximately 5 mm of the distal clavicle so there was no bone left engaging the acromion. The assistant men's lacrosse coach was medically required in order to help assist in techniques above, which require positioning the arm, holding the arthroscope, and manipulating multiple instruments and sutures at the same time. This cannot be done without the help of an experienced assistant men's lacrosse coach. SURGEON: Uriel Powers SOCIAL CONTACT WORKER: Jaspal Edmonds ANESTHESIA TYPE: General LMA/ETT and Primary Nerve Block Refer to Anesthesia Record ESTIMATED BLOOD LOSS: 5 PATHOLOGY: none sent COMPLICATIONS: None Patient was transported to: PACU Patient's condition: stable Implants: Arthrex: 4.75mm SwiveLocks x 2 Indications: The patient was diagnosed with the above conditions and appropriately indicated for surgical intervention. Please see complete medical record for details. Findings: Exam under anesthesia: Full range of motion, no instability Glenohumeral joint: Type II SLAP tear with instability of the biceps tendon anchor, intra-articular long head biceps injection. Intact subscapularis. Chondromalacia about the superior glenoid with anterior and superior labral fraying. High-grade with some small amount of residual intact medial supraspinatus fibers. Intact articular infraspinatus. Subacromial space: Moderate bursitis. Significant impinging undersurface and engaging distal clavicle acromion. Near?complete bursal isolated supraspinatus rotator cuff tear. Procedure Description: In the operating room, general anesthesia was induced. Bilateral shoulders were examined. The patient was positioned in the beachchair position. All bony prominences were well-padded. Preoperative antibiotics were administered. The shoulder was prepped and draped in the usual sterile fashion. The correct patient, procedure, and side of the procedure were all verified prior to incision. Starting through the posterior portal a standard complete diagnostic arthroscopy was performed of the glenohumeral joint including inspection of the long head of the biceps, anterior and superior labrum, subscapularis tendon, supraspinatus and infraspinatus tendons, and axillary recess. The glenoid and humeral head cartilage as well as the posterior labrum were inspected from an anterior viewing portal. Significant findings and interventions noted above. An all-arthroscopic suprapectoral biceps tenodesis was performed through an anterior portal using a Loop N Tack method with a SutureTape FiberLink cinched around and through the tendon. The biceps was tenotomized from the labrum and fixated with a suture anchor at the superior margin of the bicipital groove. Starting through the posterior portal, the arthroscope was directed into the subacromial space. A lateral 50 yard line lateral portal was created. A combination of power instruments and a radiofrequency ablator were used to debride bursitis anteriorly, posteriorly, and laterally as well as expose and smooth bone spurring on the undersurface of the acromion. The coracoacromial ligament was partially released. The bursectomy was completed viewing laterally and working from posteriorly and the rotator cuff was thoroughly inspected with findings noted above. The anterior portal was redirected towards the undersurface of the AC joint. A shaver and electrocautery device were used to clear soft tissue from the undersurface of the AC joint. The distalmost 5 mm of the distal clavicle was then removed and smoothed. Care was taken to alternate between working through the anterior portal and viewing through the anterior portal to ensure that proper amount of bone was removed and there was no engaging bone left behind especially superiorly. The supraspinatus tear was then localized anteriorly laterally and elevated off the greater tuberosity using hand instruments taking care to release the full?thickness tendon. Various hand instruments were then used as well as the mechanical shaver to debride the tendon as needed to a stable margin as well as thoroughly prepare the entirety of the undersurface greater tuberosity to optimize bone tendon healing. There is excellent bleeding at the repaired bone interface. The tendon had minimal retraction. Decision was made to proceed with speed bridge type repair. Self retrieving suture passer was used to pass a FiberTape inverted horizontal mattress spanning the tear from anteriorly and posteriorly at the appropriate level medially. An additional FiberLink was then placed centrally and more medially encompassing the FiberTape in a ripstop fashion. The sutures were then secured to a single lateral row SwiveLock anchor taking care to place appropriate tension but not too much tension on this bursal type repair. Repair was inspected and stable with good fixation strength. The shoulder was drained of arthroscopic fluid. All portal sites were copiously irrigated. These incisions were closed using 3-0 Monocryl in a buried fashion and then covered with Mastisol, Steri-Strips, Xeroform, dry gauze, and ABDs. The dressings were covered and secured with Medipore tape. The operative extr emity was placed into a sling for immobilization. The patient awoke from anesthesia without complication and was transferred to the recovery room in a stable condition.
[2021-11-14] MEDS: fentaNYL 100 MCG/2 ML VIAL IVP ×2 (09:42→09:56)
[2021-11-14] MEDS: Normal Saline 10 ML VIAL IJ (10:18)
[2021-11-14] MEDS: HYDROmorphone 2 MG/ML VIAL IVP ×2 (10:18→10:29)
[2021-11-14] MEDS: oxyCODONE 5 MG TAB PO (11:08)
--- NOTE | 2021-11-14 11:23 | W.ANESPOSTOP ---
Postoperative Evaluation Date, Time and Location Date Performed: 11/14/21 Time Performed: 11:23 Patient Location: Day Surgery Unit Vital Signs Most Recent Imported Vital Signs: Most Recent Vital Signs Temp Pulse Resp BP Pulse Ox 36.2 C L 61 20 159/105 H 98 11/14/21 10:54 11/14/21 10:54 11/14/21 10:54 11/14/21 10:54 11/14/21 10:54 Pain Score Most Recent Pain Score: Most Recent Pain Score Pain Level 6 11/14/21 10:54 Assessment Mental Status: Awake (Alert & Oriented to Patient Baseline) Airway and Respiratory Function: Patent airway with normal (patient baseline) respiratory exam Cardiovascular Function: Hemodynamically Stable Hydration Status: Adequately Hydrated Nausea & Vomiting: No Nausea or Vomiting Pain: Pain is tolerable per patient (Pain level is decreasing, states it is now 5/10 and tolerable. Just took PO med 5-10 min ago.) Peripheral Nerve Block: Regional nerve block not resolved at time of post operative discharge
== END 2021-11-14 12:35 | disposition home or self-care (01) ==
PROVIDERS: PCP Nurse Practitioner Family; Visit Provider Student in an Organized Health Care Education/Training Program
PROC: (CPT 29827; principal; 2021-11-14 07:30)
DX: M75.101 Unspecified rotator cuff tear or rupture of right shoulder, not specified as traumatic (principal); M75.41 Impingement syndrome of right shoulder; M75.51 Bursitis of right shoulder; M19.011 Primary osteoarthritis, right shoulder; R73.03 Prediabetes; K76.0 Fatty (change of) liver, not elsewhere classified; I10 Essential (primary) hypertension; K21.9 Gastro-esophageal reflux disease without esophagitis
CPT/HCPCS: 29827; 29828; 29826; 29824; 29823; 76942; J0690; J1100; J1885; J2250; J2405; J3010

== ENCOUNTER → 2021-11-26 10:16 | Outpatient (BNVA) | payer MEDICARE, MEDICAID, SELFPAY | PROVIDERS: PCP Nurse Practitioner Family; Referring Provider Nurse Practitioner Family; Visit Provider Student in an Organized Health Care Education/Training Program | DX: Z48.89 Encounter for other specified surgical aftercare (principal); M75.101 Unspecified rotator cuff tear or rupture of right shoulder, not specified as traumatic; M75.21 Bicipital tendinitis, right shoulder; M75.41 Impingement syndrome of right shoulder; M75.51 Bursitis of right shoulder ==

== ENCOUNTER 2021-12-17 19:00 | Outpatient (REF) | payer MEDICARE, MEDICAID, SELFPAY ==
[2021-12-17 15:53] LABS: ALT 35 U/L (14-59); AST 25 U/L (15-37); Albumin 4.2 g/dL (3.4-5.0); Alkaline Phosphatase 88 U/L (46-116); Anion Gap 9.8 mmol/L (3-11); BUN 26 mg/dL (7-18); Bilirubin, Total 0.4 mg/dL (0.2-1.0); CO2 25.2 mmol/L (21.0-32.0); CREATININE 0.9 mg/dL (0.55-1.02); Calcium 9.5 mg/dL (8.5-10.1); Chloride 103 mmol/L (98-107); Glucose 127 mg/dL (74-106); Potassium 5.1 mmol/L (3.5-5.1); Sodium 138 mmol/L (136-145); Total Protein 7.2 g/dL (6.4-8.2)
[2021-12-17 16:13] LABS: Calculated LDL 102 mg/dL (<100); Cholesterol 240 mg/dL (<200); HDL Cholesterol 73 mg/dL (40-60); Triglyceride 328 mg/dL (<150)
== END 2021-12-17 19:01 | disposition home or self-care (01) ==
LOC: NCHCN 19:00
PROVIDERS: PCP Nurse Practitioner Family; Visit Provider Nurse Practitioner Family
DX: E78.5 Hyperlipidemia, unspecified (principal); I10 Essential (primary) hypertension; K76.0 Fatty (change of) liver, not elsewhere classified
CPT/HCPCS: 80053; 80061; 84443

== ENCOUNTER → 2022-01-14 10:31 | Outpatient (BNVA) | payer MEDICARE, MEDICAID, SELFPAY | PROVIDERS: PCP Nurse Practitioner Family; Referring Provider Nurse Practitioner Family; Visit Provider Student in an Organized Health Care Education/Training Program | DX: Z47.89 Encounter for other orthopedic aftercare (principal); M75.101 Unspecified rotator cuff tear or rupture of right shoulder, not specified as traumatic ==

== ENCOUNTER 2023-03-09 14:29 | Outpatient (REF) | payer MEDICARE, MEDICAID, SELFPAY ==
[2023-03-09 15:24] LABS: ALT 36 U/L (14-59); AST 22 U/L (15-37); Albumin 3.9 g/dL (3.4-5.0); Alkaline Phosphatase 95 U/L (46-116); BUN 21 mg/dL (7-18); Bilirubin, Total 0.6 mg/dL (0.2-1.0); CREATININE 1.1 mg/dL (0.55-1.02); Calcium 9.4 mg/dL (8.5-10.1); Calculated LDL 92 mg/dL (<100); Chloride 106 mmol/L (98-107); Cholesterol 202 mg/dL (<200); Estimated GFR 56.46 (mL/min/1.73m2); Glucose 138 mg/dL (74-106); HDL Cholesterol 57 mg/dL (40-60); Potassium 4.3 mmol/L (3.5-5.1); Sodium 140 mmol/L (136-145); TSH 1.89 uIU/mL (0.36-3.74); Total Protein 7.3 g/dL (6.4-8.2); Triglyceride 268 mg/dL (<150)
[2023-03-09 17:08] LABS: Hemoglobin A1C 5.9 % (<5.7)
== END 2023-03-09 14:30 | disposition home or self-care (01) ==
LOC: NCHCN 14:29
PROVIDERS: PCP Nurse Practitioner Family; Visit Provider Nurse Practitioner Family
DX: E03.9 Hypothyroidism, unspecified (principal); R73.03 Prediabetes; I10 Essential (primary) hypertension; E78.5 Hyperlipidemia, unspecified
CPT/HCPCS: 80053; 80061; 83036; 84443

== ENCOUNTER → 2023-03-24 00:36 | Outpatient (CLI) | payer MEDICARE, MEDICAID, SELFPAY ==
--- NOTE | 2023-03-24 11:35 | DI.MAMMO_ITS ---
Exam(s) MAMMO SCREENING EXAM: MAMMO SCREENING CLINICAL HISTORY: SCREENING, Z12.39 TECHNIQUE: Bilateral full field digital CC and MLO mammographic images were obtained with 3D tomosyn thesis and utilizing computer aided detection (CAD). COMPARISON: Available for comparison. FINDINGS: Masses/Architectural Distortion: None seen. Microcalcifications: No suspicious pleomorphic-type are seen. Skin Thickening/Nipple Retraction: None. IMPRESSION: 1. No significant interval change with no specific features of malignancy noted. 2. Unless there is more urgent need, screening mammography is recommended, as per [employer] [employer] guidelines. BI-RADS Category 1 - Negative Breast Density - Category B - Scattered areas of fibroglandular density Breast density category C or D implies that the patient has dense breast tissue. Dense breast tissue is very common and is not abnormal but dense breast tissue can make it harder to find cancer on a ma mmogram. Also, dense breast tissue may increase their breast cancer risk. This information about the result of the mammogram report was provided to the patient to raise their awareness. Use this report when you speak with the patient about their risks for breast cancer, which includes their family hist ory. At that time, you may recommend for more screening tests (Ultrasound or MRI) as they might be us eful based on their risk. A negative radiographic report should not delay biopsy if a dominant or clinically suspicious mass is present. Up to ten percent of cancers are not identified on mammography. A negative report may reinforce clinical impression. Adenosis and dense breasts may obscure an underlying neoplasm. False positive reports average 6 to 10%. Patient will receive a letter notifying them of these results.
== END ==
PROVIDERS: PCP Nurse Practitioner Family; Visit Provider Nurse Practitioner Family
DX: Z12.2 Encounter for screening for malignant neoplasm of respiratory organs (principal)
CPT/HCPCS: 77063; 77067

== ENCOUNTER 2023-06-30 14:32 | Outpatient (REF) | payer MEDICARE, MEDICAID, SELFPAY ==
[2023-06-30 16:13] LABS: Hemoglobin A1C 5.6 % (<5.7)
[2023-06-30 16:26] LABS: ALT 43 U/L (14-59); AST 32 U/L (15-37); Albumin 4.1 g/dL (3.4-5.0); Alkaline Phosphatase 89 U/L (46-116); Anion Gap 12.9 mmol/L (3-11); BUN 17 mg/dL (7-18); Bilirubin, Total 0.5 mg/dL (0.2-1.0); CO2 23.1 mmol/L (21.0-32.0); CREATININE 1.1 mg/dL (0.55-1.02); Calcium 10.2 mg/dL (8.5-10.1); Chloride 103 mmol/L (98-107); Estimated GFR 56.46 (mL/min/1.73m2); Glucose 137 mg/dL (74-106); Potassium 4.1 mmol/L (3.5-5.1); Sodium 139 mmol/L (136-145); Total Protein 7.5 g/dL (6.4-8.2)
== END 2023-06-30 14:33 | disposition home or self-care (01) ==
LOC: NCHCN 14:32
PROVIDERS: PCP Nurse Practitioner Family; Visit Provider Nurse Practitioner Family
DX: R73.03 Prediabetes (principal); I10 Essential (primary) hypertension
CPT/HCPCS: 80053; 83036

== ENCOUNTER 2024-02-03 19:56 | Outpatient (REF) | payer MEDICARE, MEDICAID, SELFPAY ==
[2024-02-03 21:22] LABS: ALT 58 U/L (14-59); AST 32 U/L (15-37); Albumin 4.3 g/dL (3.4-5.0); Alkaline Phosphatase 101 U/L (46-116); Anion Gap 12.3 mmol/L (3-11); BUN 22 mg/dL (7-18); Bilirubin, Total 0.35 mg/dL (0.2-1.0); CO2 23.7 mmol/L (21.0-32.0); CREATININE 1.1 mg/dL (0.55-1.02); Calcium 9.5 mg/dL (8.5-10.1); Chloride 105 mmol/L (98-107); Estimated GFR 56.11 (mL/min/1.73m2); Glucose 121 mg/dL (74-106); Potassium 4.1 mmol/L (3.5-5.1); Sodium 141 mmol/L (136-145); TSH (W/Ref FT4) 1.05 uIU/mL (0.36-3.74); Total Protein 7.2 g/dL (6.4-8.2)
[2024-02-04 11:46] LABS: Hemoglobin A1C 5.5 % (<5.7)
== END 2024-02-03 19:57 | disposition home or self-care (01) ==
LOC: NCHCN 19:56
PROVIDERS: PCP Nurse Practitioner Family; Visit Provider Nurse Practitioner Family
DX: I10 Essential (primary) hypertension (principal); E03.9 Hypothyroidism, unspecified; R73.03 Prediabetes
CPT/HCPCS: 80053; 83036; 84443

== ENCOUNTER 2024-08-16 16:41 | Outpatient (REF) | payer MEDICARE, MEDICAID, SELFPAY ==
[2024-08-16 16:21] LABS: Abs Immature Grans 0.02 10^3/uL (0.0-0.06); Absolute Basophil Count 0.06 10^3/uL (0.0-0.2); Absolute Eosinophil Count 0.06 10^3/uL (0.0-0.7); Absolute Lymphocyte Count 1.18 10^3/uL (1.2-3.4); Absolute Monocyte Count 0.41 10^3/uL (0.1-0.8); Absolute Neutrophil Count 3.33 10^3/uL (1.2-6.7); Basophils % 1.2 %; Eosinophils % 1.2 %; HCT 40.4 % (36.0-46.0); HGB 13.8 g/dL (11.2-15.7); Immature Grans % 0.4 %; Lymphocytes % 23.3 %; MCH 31.7 pg (27.0-33.0); MCHC 34.2 % (32.0-36.0); MCV 93 fL (80-95); MPV 9.5 fL (8.0-11.0); Monocytes % 8.1 %; Neutrophils % 65.8 %; Platelet Count 252 10^3/uL (130-400); RBC 4.35 10^6/uL (3.93-5.22); RDW 12.7 % (11.7-14.6); RDW-SD 43.5 fL; WBC 5.06 10^3/uL (4.4-10.8)
[2024-08-16 19:47] LABS: ALT 41 U/L (14-59); AST 25 U/L (15-37); Albumin 4.5 g/dL (3.4-5.0); Alkaline Phosphatase 103 U/L (46-116); Anion Gap 14.5 mmol/L (3-11); BUN 27 mg/dL (7-18); Bilirubin, Total 0.37 mg/dL (0.2-1.0); CO2 22.5 mmol/L (21.0-32.0); CREATININE 1.2 mg/dL (0.55-1.02); Calcium 9.8 mg/dL (8.5-10.1); Calculated LDL 106 mg/dL (<100); Chloride 106 mmol/L (98-107); Cholesterol 226 mg/dL (<200); Estimated GFR 50.55 (mL/min/1.73m2); Glucose 120 mg/dL (74-106); HDL Cholesterol 78 mg/dL (40-60); Potassium 4.4 mmol/L (3.5-5.1); Sodium 143 mmol/L (136-145); Total Protein 7.3 g/dL (6.4-8.2); Triglyceride 214 mg/dL (<150)
== END 2024-08-16 16:42 | disposition home or self-care (01) ==
LOC: NCHCN 16:41
PROVIDERS: PCP Nurse Practitioner Family; Visit Provider Nurse Practitioner Family
DX: I10 Essential (primary) hypertension (principal); F41.8 Other specified anxiety disorders
CPT/HCPCS: 80053; 80061; 85025

== ENCOUNTER 2025-01-05 01:22 | Outpatient (CLI) | payer MEDICARE, MEDICAID, SELFPAY ==
--- NOTE | 2025-01-05 | DI.MAMMO_ITS ---
Exam(s) US BREAST LT COMPLETE MG MAMMO DIAGNOSTIC BI EXAM: MG MAMMO DIAGNOSTIC BI AND COMPLETE LEFT BREAST ULTRASOUND CLINICAL HISTORY: mass lt breast lt, n63.20, newly indicated lt breast lump. TECHNIQUE: BILATERAL CC AND MLO mammographic images were obtained with 3D tomosynthesis technique and utilizing computer aided detection (CAD). COMPLETE LEFT BREAST ULTRASOUND was performed including all 4 quadrants as well as the axillary region. COMPARISON: Prior mammograms dating back to 2015 were reviewed, the most recent being February 2023. This patient claims that she feels a possible new marble size lump in the upper- outer quadrant of her left breast. She denies nipple discharge. FINDINGS: DIAGNOSTIC BILATERAL MAMMOGRAM: The fibroglandular tissue pattern is fatty (type A). There are no new significant radiograph findings in the right breast. In the left breast there is a stable benign-appearing centrally located intramammary lymph node, unchanged from 2016. There are no new mammographic findings in the upper outer quadrant which is where she feels a possible lump. More anteriorly there is a new small well-defined out of the superficial noncalcified nodule in the left breast located slightly medial of the nipple. This corresponds to what appears to be a small hemorrhagic microcyst on today's ultrasound which is located at the 10 o'clock position ultrasound. There are no malignant-appearing microcalcification groups in this region or elsewhere in either breast. THE LEFT BREAST ULTRASOUND: There are no focal findings in her area of clinical concern in the upper-outer quadrant nor elsewhere in all 4 quadrants of the exception a 3-4 mm hemorrhagic microcyst located at the relatively superficial 10 o'clock position, this corresponding to the new benign-appearing nodule located anteriorly on the mammogram. Scanning of the left axilla is negative for significant adenopathy IMPRESSION: 1. No radiographic evidence of malignancy. There is a benign-appearing small nodule now evident anteriorly in the left breast which corresponds to a small hemorrhagic microcysts on ultrasound located at 10 o'clock position. 2. There are no mammographic nor ultrasound findings in her area of clinical concern in the upper-outer quadrant of the left breast. Appropriate follow-up, as discussed by myself with the patient today, is repeat left breast imaging in 6 months fluid both repeat mammogram and ultrasound. Earlier imaging be recommended if she feels that the nodule in her left breast is continuously growing in size.. The patient was informed of the findings and follow-up recommendations by myself prior to leaving the department today. BI-RADS Category 3 - 6 month - Probably Benign Finding: Recommend follow-up mammography in 6 months Breast Density - Category A - The breast are almost entirely fatty. Breast density Category C or D implies that the patient has dense breast tissue. Dense breast tissue can make it harder to find cancer on a mammogram. Dense breast tissue is also associated with an increased risk of breast cancer. This information about the result of the mammogram report was provided to the patient to raise their awareness. Use this report when you speak with the patient about their risks for breast cancer, which includes their family history. At that time, you may recommend additional screening tests (Ultrasound or MRI) as these tests may add significant information. A negative radiographic report should not delay biopsy if a dominant or clinically suspicious mass is present. Up to ten percent of cancers are not identified on mammography. A negative report may reinforce clinical impression. Adenosis and dense breasts may obscure an underlying neoplasm. False positive reports average 6 to 10%. Patient will receive a letter notifying them of these results.
== END 2025-01-05 01:42 ==
PROVIDERS: PCP Nurse Practitioner Family; Visit Provider Student in an Organized Health Care Education/Training Program
DX: Z12.31 Encounter for screening mammogram for malignant neoplasm of breast (principal); R92.8 Other abnormal and inconclusive findings on diagnostic imaging of breast
CPT/HCPCS: 76642; 77062; 77066; G0279

== ENCOUNTER 2025-01-17 13:05 | Outpatient (REF) | payer MEDICARE, MEDICAID, SELFPAY ==
[2025-01-17 15:06] LABS: Hemoglobin A1C 5.0 % (<5.7)
[2025-01-17 15:36] LABS: TSH (W/Ref FT4) 0.99 uIU/mL (0.36-3.74); Vitamin B12 442 pg/mL (193-986)
== END 2025-01-17 13:06 | disposition home or self-care (01) ==
LOC: NCHCN 13:05
PROVIDERS: PCP Nurse Practitioner Family; Visit Provider Student in an Organized Health Care Education/Training Program
DX: R73.03 Prediabetes (principal); E03.9 Hypothyroidism, unspecified; K21.9 Gastro-esophageal reflux disease without esophagitis
CPT/HCPCS: 82607; 83036; 84443